=== PATIENT | male | born 1995 | race Hispanic/Latino ===

== ENCOUNTER 2017-08-23 05:57 | Day surgery (SDC) | payer OTHER ==
[~2017-08-23] VITALS: Ht 177.8 cm; Wt 117.9 kg
--- NOTE | 2017-08-23 09:50 | NUR ---
08/23/17 0950 Matthew Garg RESPONDS TO TAP AND VOICE AT 0849. OPA REMOVED. REORIENTED PT TO TIME AND SITUATION. FALLS ASLEEP EASILY.
--- NOTE | 2017-08-23 12:20 | NUR ---
LE 1215 REPORT CALLED TO AMARIS DUQUE AT [facility].
--- NOTE | 2017-08-24 14:06 | OR ---
[facility] [address], [place] [address] Signed DATE OF PROCEDURE: 08/23/17 PREOPERATIVE DIAGNOSES Anterior cruciate ligament deficient, right knee and medial meniscal and lateral meniscal tears, right knee. POSTOPERATIVE DIAGNOSES Anterior cruciate ligament deficient, right knee and medial meniscal and lateral meniscal tears, right knee. PROCEDURE Knee arthroscopy with bilateral, i.e., medial and lateral partial medial meniscectomies followed by anterior cruciate ligament reconstruction using an allograft. SURGEON: Ayaan Beebe MD. ANESTHESIA: General. There were no specimens or complications. TOURNIQUET TIME: Just under 90 minutes. DETAIL OF PROCEDURE The patient was taken to the operating room. As anesthesia was being induced and he was being prepped and draped, the graft was placed on the back table. After it was thawed, we fashioned a kfkg-[id number] graft with two 10 x 25 mm bone plugs, one on either end with a 10 mm of intervening tendinous tissue. We placed a drill hole in each of the bone blocks, placed a #FiberWire in one and an ACL TightRope in the other. We then put it in saline to soak. After completing a graft preparation, the patient, who had been prepped and draped, had the knee exsanguinated with an Esmarch bandage, pneumatic tourniquet about the thigh was inflated to 300 mmHg. We then inserted the arthroscope through the standard anterolateral portal. An anteromedial portal was created using transillumination and localization with a spinal needle. Diagnostic arthroscopy revealed rather significant inflammatory synovitis on the suprapatellar pouch. There were actually mild degenerative changes on the patellofemoral joint. The medial recess was unremarkable. The medial compartment revealed a complex tearing of the medial meniscus. A motorized shaver was introduced and all of the meniscal shards were removed and/or trimmed back to a stable margin. We then used a probe to palpate the periphery of the medial meniscus and no additional loose fragments were identified. The surface of the medial femoral condyle actually looked excellent as did the surface of the medial tibial plateau. The intercondylar notch revealed a complete absence of the ACL. The PCL was moderately scarred. Interestingly, for a 22-year-old male had a very stenotic notch. The Electronically Signed By: AYAAN BEEBE MD 08/24/17 1406 PATIENT NAME: JERILYN TALAVERA OPERATIVE REPORT DATE OF : [birth year] PHYSICIAN: AYAAN BEEBE MD REPORT #: [id number] REPORT IS CONFIDENTIAL AND NOT TO BE RELEASED WITHOUT AUTHORIZATION [facility] [address], [place] [address] Signed lateral compartment again revealed some fraying at complex tearing of the lateral meniscus. Again, we used the motorized shaver introduced through the medial portal to debride all of the unstable meniscal fragments. The knee was then copiously irrigated. We then used a VAPR electrosurgical device to remove the remaining soft tissue at the ACL insertion and along the lateral wall and the apex of the notch of the femoral notch. We then introduced the 4 mm toñito and actually spent the majority of the case simply doing an adequate notchplasty. After we had widened deep in the notch, we were then able to use the femoral aiming device. Using a 10 mm flip cutter, the flip cutter was drilled through the aiming device through the lateral cortex via lateral femoral condyle and allowed to exit it about the 11 o'clock position in the posterior aspect of the notch. We then deployed a flip cutter and cut a 25 mm femoral tunnel. We then removed the flip cutter and passed a FiberStick. We then reached through the knee joint, pulled the FiberStick out the lateral portal and clamped it back to itself. We then returned the scope to the anterolateral portal and using the tibial aiming device drilled a 10 mm hole through the anteromedial tibia allowing to exit in the old ACL footprint. We then placed a plug in the external opening of the tibial tunnel and used the motorized shaver and a basket forceps to remove the rest of the tissue from around the aperture, both intra-articularly and extra-articular l y. Once we had cleaned out both of the apertures, we were able to reach up the tibial tunnel, grab the FiberStick and pulled it down the tibial tunnel. We then used the tibial tunnel to deploy the TightRope device up the tibial tunnel across the knee out the femoral tunnel and out the lateral side. We then deployed the TightRope and were able to tighten the TightRope down until we had secure fixation proximally. As added fixation, we went through a series of alternating post knots down over the TightRope device. We then tensioned the construct distally, cycled the knee a number of times. With the knee in about 15 degrees of flexion with a posterior drawer movement, we secured it distally with a 9 x 28 mm BioComposite screw. We then pulled out the #5 FiberWire. The incision was then gently irrigated and closed in a standard fashion. A sterile dressing followed by a bulky dressing and a knee brace locked in full extension were applied. The patient was awakened, taken to the recovery room where he arrived in stable condition. Counts were correct and antibiotic protocols were followed. MD RA Vines/Bran /[id number] Electronically Signed By: AYAAN BEEBE MD 08/24/17 1406 PATIENT NAME: JERILYN TALAVERA OPERATIVE REPORT DATE OF : [birth year] PHYSICIAN: AYAAN BEEBE MD REPORT #: [id number] REPORT IS CONFIDENTIAL AND NOT TO BE RELEASED WITHOUT AUTHORIZATION [address] [place], [place] [address] Signed cc: Fredo Alexis MD Electronically Signed By: AYAAN BEEBE MD 08/24/17 1406 PATIENT NAME: JERILYN TALAVERA OPERATIVE REPORT DATE OF : [birth year] PHYSICIAN: AYAAN BEEBE MD REPORT #: [id number] REPORT IS CONFIDENTIAL AND NOT TO BE RELEASED WITHOUT AUTHORIZATION
== END 2017-08-23 11:45 | disposition home or self-care (01) ==
LOC: OPS 05:57 → DS 05:57 → OPS 06:45 → DS 06:45 → OPS 11:45
PROVIDERS: Orthopaedic Surgery
PROC: 0SBC4ZZ Excision of Right Knee Joint, Percutaneous Endoscopic Approach (ICD-10-PCS; 2017-08-23)
PROC: 0MSN4ZZ Reposition Right Knee Bursa and Ligament, Percutaneous Endoscopic Approach (ICD-10-PCS; 2017-08-23)
PROC: 0SBC4ZZ Excision of Right Knee Joint, Percutaneous Endoscopic Approach (ICD-10-PCS; principal; 2017-08-23 06:45)
DX: S83.231A Complex tear of medial meniscus, current injury, right knee, initial encounter (principal); S83.271A Complex tear of lateral meniscus, current injury, right knee, initial encounter; S83.511A Sprain of anterior cruciate ligament of right knee, initial encounter
CPT/HCPCS: 01400; 64447; 76942; C1713; C1762; J0690; J1100; J1170; J1885; J2250; J2270; J2370; J2405; J2704; J2795; J3010